=== PATIENT | male | born 1980 | race Caucasian/White ===

== ENCOUNTER 2020-04-01 16:27 | Emergency (ER) | payer MEDICARE, MEDICAID, SELFPAY ==
[2020-04-01 16:38] VITALS: BP 148/100; PULSE 93; RESP 14; TEMP 37.1; O2SAT 94; BMI 21.1
--- NOTE | 2020-04-01 17:03 | PC.NURSE ---
Patient denies pain. reports bright red blood per rectum, blood on TP and sometimes squirts when having a BM. Denies pain at sight of hemrrhoids at this time. Patient admits to significant ETOH consumption my main concern is my liver Patient denies dizziness, weakness.
[2020-04-01 17:08] LABS: Add Manual Diff / Slide Review NO; Basophils Absolute Auto 0 /uL (0-100); Basophils Percent Auto 0.4 % (0-2); Eosinophils Absolute Auto 200 /uL (0-450); Hematocrit 44.8 % (41-53); Lymphocytes Absolute Auto 2200 /uL (1100-4500); Lymphocytes Percent Auto 35.2 % (25-40); Mean Corpuscular HGB Conc 33.5 % (30-36); Mean Corpuscular Hemoglobin 32.7 PG (26-34); Mean Corpuscular Volume 97.6 fL (80-100); Monocytes Absolute Auto 600 /uL (0-900); Neutrophils Absolute Auto 3300 /uL (1500-7000); Neutrophils Percent Auto 52.4 % (50-75); Platelet Count 239 X10^3/uL (150-400); Red Blood Cell Count 4.59 X10^6/uL (4.5-5.9); Red Cell Distribution Width 13.4 % (11.6-14.8); White Blood Cell Count 6.3 X10^3/uL (4.5-11.0)
[2020-04-01 17:15] LABS: INR 0.9 (0.9-1.3); Prothrombin Time 10.3 SECONDS (10.1-12.7)
[2020-04-01 17:18] LABS: PTT Partial Thromboplastin Tim 31 SECONDS (26.4-36.2)
[2020-04-01 17:21] LABS: Alanine Aminotransferase 62 IU/L (<50); Albumin 4.7 g/dL (3.5-5.0); Albumin Globulin Ratio 1.4 (1.0-2.8); Alkaline Phosphatase 81 U/L (38-126); Aspartate Aminotransferase 81 IU/L (17-59); BUN Creatinine Ratio 13.6 (6-22); Bilirubin Total 0.2 mg/dL (0.2-1.3); Blood Urea Nitrogen 9 mg/dL (9-20); Calcium 9.1 mg/dL (8.4-10.2); Carbon Dioxide 24 mmol/L (22-32); Chloride 107 mmol/L (98-107); Estimated Glomerular Filt Rate > 60.0 mL/min (>60); Globulin 3.3 g/dL (1.7-4.1); Glucose 97 mg/dL (70-100); HEMOLYSIS < 15 (0-50); Potassium 4.1 mmol/L (3.4-5.1); Sodium 142 mmol/L (137-145)
--- NOTE | 2020-04-01 17:31 | ED.GIBLEED ---
HPI - GI Bleed General Chief complaint: GI Bleed Stated complaint: rectal pain Time Seen by Provider: 04/01/20 17:23 Source: patient Mode of arrival: Ambulatory Limitations: no limitations History of Present Illness HPI Narrative: Patient is a 39-year-old male who admits to being an alcoholic presenting with bright red blood per rectum. He says that he has had frequent bloody stools for the last week and half. He says he has a history of hemorrhoids as well but he thinks maybe this is different. He denies any abdominal pain no dizziness lightheadedness or shortness of breath. He says every time he goes or strains he has blood. He does not see any blood clots. He has not had any prior colonoscopy. No known family history of colon cancer. MD complaint: gross hematochezia Onset (ago): week(s) Context: liver disease and hemorrhoids Related Data Previous Rx's Medication Instructions Recorded hydrocortisone acetate [Anusol-HC] 25 mg ND BEDTIME PRN #12 ea 04/01/20 Allergies Allergy/AdvReac Type Severity Reaction Status Date / Time Penicillins Allergy Verified 04/01/20 16:38 Review of Systems Review of Systems Narrative: GENERAL: Denies chills, fatigue, malaise, fever, sweats, travel HEENT: Denies sinus pain, ear pain, sore throat, difficulty swallowing, neck pain RESPIRATORY: Denies dyspnea, cough, wheezing, hemoptysis, sputum. CARDIOVASCULAR: Denies chest pain, palpitations, orthopnea, edema GASTROINTESTINAL: See HPI : Denies dysuria, frequency, incontinence, hematuria, urinary retention, flank pain. MUSCULOSKELETAL: Denies weakness, joint pain, or bony pain SKIN: No rash, no erythema, no pruritus NEUROLOGIC: Denies weakness, dizziness, headache, numbness, change in speech, confusion PSYCHIATRIC: No concerning psychosocial issues. 12 point review of systems is negative except for those stated above and HPI Patient History Social History Smoking Status: Current every day smoker Smoking Status: Current every day smoker alcohol intake frequency: 3 or more drinks per day Substance Use Type: does not use Exam Initial Vital Signs Initial Vital Signs: Vital Signs Temperature 98.8 F 04/01/20 16:38 Pulse Rate 93 H 04/01/20 16:38 Respiratory Rate 14 04/01/20 16:38 Blood Pressure 148/100 H 04/01/20 16:38 Pulse Oximetry 94 04/01/20 16:38 GENERAL: Well-appearing, well-nourished and in no acute distress. HEENT: Head atraumatic,EOMI, pupils reactive, face symmetric, moist mucous membranes CARDIOVASCULAR: Regular rate and rhythm without murmurs, rubs or gallops. RESPIRATORY: Breath sounds equal bilaterally, no wheezes rales or rhonchi. ABDOMEN: Soft, nontender. Normoactive bowel sounds all 4 quadrants. No guarding or rebound. RECTAL: Hemoccult-positive, + hemorrhoids, nontender, nurse Kiki present for exam. EXTREMITIES: Normal range of motion, no clubbing or edema. Neurovascularly intact NEUROLOGICAL: Alert and oriented x4.Normal gait and speech. Cranial nerves II through XII grossly intact. SKIN: Warm, dry, no laceration, no petechiae, no rashes or lesions. Course Orders Ordered: ED Orders 04/01/20 16:38 EKG-12 Lead Stat 04/01/20 17:00 Complete Blood Count AUTO DIFF Stat Comprehensive Metabolic Panel Stat Partial Thromboplastin Time Stat Prothrombin Time INR Stat Vital Signs Vital signs: Vital Signs - 8 hr 04/01/20 16:38 04/01/20 18:01 Temperature 98.8 F Pulse Rate 93 H 71 Respiratory Rate 14 17 Blood Pressure 148/100 H 164/79 H Pulse Oximetry 94 95 MDM - GI Bleed Lab Data Attestation: I reviewed the patient's lab results. Result diagrams: 04/01/20 17:00 04/01/20 17:00 Labs: Lab Results 04/01/20 04/01/20 04/01/20 Range/Units 17:00 17:00 17:00 WBC 6.3 (4.5-11.0) X10^3/uL RBC 4.59 (4.5-5.9) X10^6/uL Hgb 15.0 (13.5-17.5) g/dL Hct 44.8 (41-53) % MCV 97.6 (80-100) fL MCH 32.7 (26-34) PG MCHC 33.5 (30-36) % RDW 13.4 (11.6-14.8) % Plt Count 239 (150-400) X10^3/uL Neut % (Auto) 52.4 (50-75) % Lymph % (Auto) 35.2 (25-40) % [place] % (Auto) 9.0 (3-14) % Eos % (Auto) 3.0 (2-4) % Baso % (Auto) 0.4 (0-2) % Neut # (Auto) 3300 (4609-2889) /uL Lymph # (Auto) 2200 (3812-4478) /uL [place] # (Auto) 600 (0-900) /uL Eos # (Auto) 200 (0-450) /uL Baso # (Auto) 0 (0-100) /uL PT 10.3 (10.1-12.7) SECONDS INR 0.9 (0.9-1.3) APTT 31 (26.4-36.2) SECONDS Sodium 142 (137-145) mmol/L Potassium 4.1 (3.4-5.1) mmol/L Chloride 107 (98-107) mmol/L Carbon Dioxide 24 (22-32) mmol/L BUN 9 (9-20) mg/dL Creatinine 0.66 (0.66-1.25) mg/dL Estimated GFR > 60.0 (>60) mL/min BUN/Creatinine Ratio 13.6 (6-22) Glucose 97 (70-100) mg/dL Calcium 9.1 (8.4-10.2) mg/dL Total Bilirubin 0.2 (0.2-1.3) mg/dL AST 81 H (17-59) IU/L ALT 62 H (<50) IU/L Alkaline Phosphatase 81 (38-126) U/L Total Protein 8.0 (6.3-8.2) g/dL Albumin 4.7 (3.5-5.0) g/dL Globulin 3.3 (1.7-4.1) g/dL Albumin/Globulin Ratio 1.4 (1.0-2.8) ECG Data Attestation: I personally reviewed and interpreted this ECG as follows: Prior ECG tracings: not available for review Interpretation: Sinus tachycardia rate 118 p.r. interval [address] to wound care MDM Narrative Medical decision making narrative: Patient is hemodynamically stable though initially little tachycardic. Hemoglobin hematocrit are within normal limits. For the amount of blood he is describing for week and half or more I do not suspect a large GI bleed. He is found to have hemorrhoids. I discussed with him need to have a colonoscopy to rule out polyps or cancers. He is from [facility], going back this week. Discharge Plan Departure Patient Disposition: Home Clinical Impression: Hemorrhoids Instructions: DI for Hemorrhoids Activity Restrictions/Additional Instructions: *You have been diagnosed with hemorrhoids *What to do: You do need to have a colonoscopy to assess for any further causes of bleeding such as polyps or cancer. Your primary care provider can help put in a referral and arrange this for you. At this time I do believe that your bleeding is from hemorrhoids *Continue to take medications as directed Anusol suppository take at bedtime *Follow up with your primary care provider in 2-3 days *Return to ER if you should have dizziness lightheadedness shortness of breath pain or any new, worsening or concerning symptoms Prescriptions: New hydrocortisone acetate [Anusol-HC] 25 mg suppository 25 mg ND BEDTIME PRN (Reason: hemorrhoids) Qty: 12 RF: 0 Referrals: [facility] [Provider Group]
--- NOTE | 2020-04-01 17:53 | PC.NURSE ---
Bright red blood present at rectum with significant hemorrhoid noted.
[2020-04-01 18:01] VITALS: BP 164/79; PULSE 71; RESP 17; O2SAT 95
== END 2020-04-01 18:12 | disposition home or self-care (01) ==
PROVIDERS: Emergency Provider Emergency Medicine
DX: K64.9 Unspecified hemorrhoids (principal); K62.5 Hemorrhage of anus and rectum
CPT/HCPCS: 36415; 80053; 85025; 85610; 85730; 93005; 99283; 99284